=== PATIENT | female | born 1985 | race Caucasian/White ===

== ENCOUNTER 2017-04-12 10:58 | Emergency (ER) | payer OTHER ==
[2017-04-12 11:06] VITALS: BP 116/58; PULSE 77; TEMP 98.2; BMI 23.3
--- NOTE | 2017-04-12 12:10 | PDOC ---
History of Present Illness - General Chief Complaint: Cold Symptoms Stated Complaint: COLD SYMPTOMS Time Seen by Provider: 04/12/17 11:14 History Source: Patient, Spouse - History of Present Illness Timing/Duration: reports: other Associated Symptoms: reports: cough, fever/chills, sore throat. denies: chest pain/soreness, earache, facial pain, headache, muscle aches, nasal drainage, shortness of breath, wheezing Past History - Past Medical History Allergies/Adverse Reactions: Allergies Allergy/AdvReac Type Severity Reaction Status Date / Time No Known Allergies Allergy Verified 04/12/17 11:01 Home Medications: Ambulatory Orders NK [No Known Home Medication] 04/12/17 COPD: No - Surgical History Appendectomy: Yes - Suicide/Smoking/Psychosocial Hx Smoking History: Never smoked Have you smoked in the past 12 months: No Information on smoking cessation initiated: No Hx Alcohol Use: No Drug/Substance Use Hx: No Substance Use Type: None Review of Systems - Review of Systems Constitutional: Yes: Malaise. No: Chills, Fever HEENTM: Yes: Throat Pain. No: Ear Pain Respiratory: Yes: Cough. No: Shortness of Breath, Wheezing Cardiac (ROS): No: Chest Pain ABD/GI: No: Diarrhea, Nausea, Vomiting, Abdominal cramping *Physical Exam - Vital Signs Last Vital Signs Temp Pulse Resp BP Pulse Ox 98.2 F 77 18 116/58 100 04/12/17 11:01 04/12/17 11:01 04/12/17 11:01 04/12/17 11:01 04/12/17 11:01 - Physical Exam General Appearance: Yes: Appropriately Dressed. No: Apparent Distress HEENT: positive: Normal Voice, Other (minimal L conjunc erythema, no discharge) Neck: positive: Supple. negative: Lymphadenopathy (R), Lymphadenopathy (L) Respiratory/Chest: positive: Lungs Clear, Normal Breath Sounds. negative: Respiratory Distress Cardiovascular: positive: Regular Rate, S1, S2 Gastrointestinal/Abdominal: negative: Tender Integumentary: positive: Dry, Warm Neurologic: positive: Fully Oriented, Alert, Normal Mood/Affect Medical Decision Making - Medical Decision Making 04/12/17 12:08 11-year-old female, currently 3 months with no issues with so far, here with malaise with sore throat, cough, hoarseness and left conjunctival erythema 5 days. States she had body aches and fever several days ago but those symptoms have since resolved. Denies chest pain, shortness of breath, n/v. No abd paib or vag bleed. [facility]en in [facility] 4 days ago and diagnosed with viral etiology. Did not have any flu testing done per . Patient here today because she feels like symptoms have worsened See exam Viral syndrome Stable and in NAD with exam only remarkable for minimal left conjunctival erythema No utility in flu testing given duration of symptoms, no benefit from tamiflu at this point No issues with so far -Discharge with supportive treatment and instructed to follow up with OB this week. *DC/Admit/Observation/Transfer Diagnosis at time of Disposition: Viral syndrome - Discharge Dispostion Disposition: HOME Condition at time of disposition: Good - Referrals - Patient Instructions Printed Discharge Instructions: DI for Viral Syndrome Additional Instructions: You have a viral illness. Rest, drink plenty of fluids and take Tylenol as needed for pain and/or fever. Please follow-up with your OB this week. - Post Discharge Activity Forms/Work/School Notes: Back to Work
== END 2017-04-12 12:16 | disposition home or self-care (01) ==
LOC: JERFT 10:58
DX: B34.9 Viral infection, unspecified (principal); H11.89 Other specified disorders of conjunctiva
CPT/HCPCS: 99281-25

== ENCOUNTER 2017-04-15 20:55 | Emergency (ER) | payer OTHER ==
--- NOTE | 2017-04-15 21:09 | PDOC ---
Rapid Medical Evaluation Time Seen by Provider: 04/15/17 21:06 Medical Evaluation: Allergies Allergy/AdvReac Type Severity Reaction Status Date / Time No Known Allergies Allergy Verified 04/12/17 11:01 04/15/17 21:08 Pt c/o: 3 months , vag bleed with no abd pain Pt on brief exam: vss Pt ordered for : labs, urine, and u/s Pt to proceed to the ED 04/15/17 21:13 Discharge Disposition - Diagnosis Vaginal bleeding - Referrals - Patient Instructions - Post Discharge Activity
[2017-04-15 21:12] VITALS: BP 132/62; PULSE 78; TEMP 98.9; BMI 21.9
[2017-04-15 21:31] LABS: BASO % 0.1 % (0-2.0); HEMATOCRIT 36.8 % (32.4-45.2); HEMOGLOBIN 12.5 GM/dL (10.7-15.3); LYMPH % 19.6 % (8-40); MCH 31.2 pg (25.7-33.7); MCHC 34.1 g/dl (32.0-36.0); MEAN CELL VOLUME 91.6 fl (80-96); MEAN PLT VOLUME 7.4 fl (7.5-11.1); MONO % 6.5 % (3.8-10.2); NEUT % 72.8 % (42.8-82.8); PLATELET COUNT 312 K/MM3 (134-434); RBC 4.02 M/mm3 (3.60-5.2); RDW 12.6 % (11.6-15.6); WHITE BLOOD COUNT 10.4 K/mm3 (4.0-10.0)
--- NOTE | 2017-04-15 21:31 | PDOC ---
History of Present Illness - General Chief Complaint: Vaginal Bleeding Stated Complaint: 16 WEEKS BLEEDING Time Seen by Provider: 04/15/17 21:06 Past History - Past Medical History Allergies/Adverse Reactions: Allergies Allergy/AdvReac Type Severity Reaction Status Date / Time No Known Allergies Allergy Verified 04/15/17 21:09 Home Medications: Ambulatory Orders NK [No Known Home Medication] 04/12/17 COPD: No Other medical history: Pt denies - Surgical History Appendectomy: Yes - Suicide/Smoking/Psychosocial Hx Smoking History: Never smoked Have you smoked in the past 12 months: No Information on smoking cessation initiated: No Hx Alcohol Use: No Drug/Substance Use Hx: No Substance Use Type: None *Physical Exam - Vital Signs Last Vital Signs Temp Pulse Resp BP Pulse Ox 98.9 F 78 18 132/62 100 04/15/17 21:09 04/15/17 21:09 04/15/17 21:09 04/15/17 21:09 04/15/17 21:09 ED Treatment Course - LABORATORY CBC & Chemistry Diagram: 04/15/17 21:21 04/15/17 21:21 *DC/Admit/Observation/Transfer Diagnosis at time of Disposition: Vaginal bleeding - Referrals - Patient Instructions - Post Discharge Activity
--- NOTE | 2017-04-15 21:33 | PDOC ---
History of Present Illness - General Chief Complaint: Vaginal Bleeding Stated Complaint: 16 WEEKS BLEEDING Time Seen by Provider: 04/15/17 21:06 - History of Present Illness Initial Comments: 04/15/17 21:39 Ms. Lott is a 31 yo female at 11 or 12 weeks who presents for evaluation of bleeding for 1 day. She reports she was evaluated yesterday with an abdominal US that was scheduled by her FISH FILLETER and told everything looked normal but that she started bleeding consistent with a heavy day of her period today. She decided to come in to get checked out because of this. The patient denies chest pain, shortness of breath, headache and dizziness. Denies fever, chills, nausea, vomit, diarrhea and constipation. Denies dysuria, frequency, urgency and hematuria. Allergies: NKDA Past History - Past Medical History Allergies/Adverse Reactions: Allergies Allergy/AdvReac Type Severity Reaction Status Date / Time No Known Allergies Allergy Verified 04/15/17 21:09 Home Medications: Ambulatory Orders NK [No Known Home Medication] 04/12/17 COPD: No Other medical history: Pt denies - Surgical History Appendectomy: Yes - Suicide/Smoking/Psychosocial Hx Smoking History: Never smoked Have you smoked in the past 12 months: No Information on smoking cessation initiated: No Hx Alcohol Use: No Drug/Substance Use Hx: No Substance Use Type: None Review of Systems - Review of Systems Comments:: 04/15/17 21:46 GENERAL/CONSTITUTIONAL: No fever or chills. No weakness. HEAD, EYES, EARS, NOSE AND THROAT: No change in vision. No ear pain or discharge. No sore throat. CARDIOVASCULAR: No chest pain or shortness of breath RESPIRATORY: No cough, wheezing, or hemoptysis. GASTROINTESTINAL: No nausea, vomiting, diarrhea or constipation. GENITOURINARY: No dysuria, frequency, or change in urination. MUSCULOSKELETAL: No joint or muscle swelling or pain. No neck or back pain. SKIN: No rash NEUROLOGIC: No headache, vertigo, loss of consciousness, or change in strength/ sensation. ENDOCRINE: No increased thirst. No abnormal weight change HEMATOLOGIC/LYMPHATIC: No anemia, easy bleeding, or history of blood clots. ALLERGIC/IMMUNOLOGIC: No hives or skin allergy. : +Bleeding as described. *Physical Exam - Vital Signs Last Vital Signs Temp Pulse Resp BP Pulse Ox 98.9 F 78 18 132/62 100 04/15/17 21:09 04/15/17 21:09 04/15/17 21:09 04/15/17 21:09 04/15/17 21:09 - Physical Exam Comments: 04/15/17 21:46 GENERAL: Awake, alert, and fully oriented, in no acute distress HEAD: No signs of trauma, normocephalic, atraumatic EYES: PERRLA, EOMI, sclera anicteric, conjunctiva clear ENT: Auricles normal inspection, hearing grossly normal, nares patent, oropharynx clear without exudates. Moist mucosa NECK: Normal ROM, supple, no lymphadenopathy, JVD, or masses LUNGS: No distress, speaks full sentences, clear to auscultation bilaterally HEART: Regular rate and rhythm, normal S1 and S2, no murmurs, rubs or gallops, peripheral pulses normal and equal bilaterally. ABDOMEN: Soft, nontender, normoactive bowel sounds. No guarding, no rebound. No masses EXTREMITIES: Normal inspection, Normal range of motion, no edema. No clubbing or cyanosis. NEUROLOGICAL: Cranial nerves II through XII grossly intact. Normal speech, normal gait, no focal sensorimotor deficits SKIN: Warm, Dry, normal turgor, no rashes or lesions noted. : +Scant blood noted in vaginal vault. No CMT tenderness. Os closed. ED Treatment Course - LABORATORY CBC & Chemistry Diagram: 04/15/17 21:21 04/15/17 21:21 - ADDITIONAL ORDERS Additional order review: 04/15/17 21:21 RBC 4.02 MCV 91.6 MCHC 34.1 RDW 12.6 MPV 7.4 L Neutrophils % 72.8 Lymphocytes % 19.6 Monocytes % 6.5 Eosinophils % 1.0 Basophils % 0.1 Medical Decision Making - Medical Decision Making 04/15/17 23:11 Ms. Lott is a 31 yo female w/ pmh as described who presents for evaluation of 1 day of vaginal bleeding while . CBC/CMP/UA/US sent for evaluation. Patient labs noted to be grossly wnl as below. US significant for confirmed 13w and 3d IUP w/ no concerning findings. Os closed. Will have patient follow-up with FISH FILLETER for further evaluation as no acute process at this time. Retyping blood for rhogam administration. 04/15/17 23:55 Rhogam given for prophylaxis. Patient verbalized she will follow-up with FISH FILLETER for further evaluation. Discharging to home. *DC/Admit/Observation/Transfer Diagnosis at time of Disposition: Vaginal bleeding - Referrals - Patient Instructions Printed Discharge Instructions: DI for Vaginal Bleeding During Additional Instructions: Please return if any pain, fever, or other concerning symptoms. Follow-up with your FISH FILLETER as discussed for further evaluation. - Post Discharge Activity
[2017-04-15 21:36] LABS: URINE APPEARANCE CLEAR; URINE BILIRUBIN NEGATIVE (NEGATIVE); URINE BLOOD 1+ (NEGATIVE); URINE COLOR STRAW; URINE GLUCOSE (UA) NEGATIVE (NEGATIVE); URINE KETONE NEGATIVE (NEGATIVE); URINE LEUK ESTERASE NEGATIVE (NEGATIVE); URINE NITRITE NEGATIVE (NEGATIVE); URINE PROTEIN NEGATIVE (NEGATIVE); URINE UROBILINOGEN NEGATIVE mg/dL (0.2-1.0)
[2017-04-15 21:42] LABS: EPI CELLS RARE /HPF (FEW); URINE MUCUS RARE
[2017-04-15 22:04] LABS: ALBUMIN 3.2 g/dl (3.4-5.0); ANION GAP 9 (8-16); BLOOD UREA NITROGEN 19 mg/dL (7-18); CALCIUM 8.5 mg/dL (8.5-10.1); CHLORIDE 99 mmol/L (98-107); CO2 25 mmol/L (21-32); CREATININE 0.6 mg/dL (0.55-1.02); GLUCOSE,RANDOM 84 mg/dL (74-106); POTASSIUM 3.9 mmol/L (3.5-5.1); SGOT/AST 16 U/L (15-37); SGPT/ALT 35 U/L (12-78); SODIUM 133 mmol/L (136-145)
[2017-04-15 22:20] LABS: ALK PHOS 143 U/L (45-117); BILIRUBIN,TOTAL 0.3 mg/dL (0.2-1.0); TOT PROT 7.2 g/dl (6.4-8.2)
[2017-04-15] MEDS ORDERED: RHO(D) IMMUNE GLOBULIN 1,500 UNIT DISP.SYRIN IM ONE (23:23)
--- NOTE | 2017-04-15 23:23 | PDOC ---
Attending Attestation - Resident Resident Name: Timo Trujillo - ED Attending Attestation I have performed the following: I have examined & evaluated the patient, The case was reviewed & discussed with the resident, I agree w/resident's findings & plan - HPI HPI: 04/15/17 23:20 Pt comes with vag bleed in the 1st treimester of . This is her first . She has no abd pain and no dysuria. Pt states that she is RH negative. - Physicial Exam PE: 04/15/17 23:21 AGree with resident exam. Pt has a closed cervical os, and minimal dark blood in the vault - Medical Decision Making 04/15/17 23:21 Pt will get RHOGAM, as she is RH negative in the ER. SOno shows a 12 week IUP good FH. Pt's exam is normal. 04/15/17 23:23 Ua is positive only for blood; no nitrites and no ketones.
== END 2017-04-16 02:13 | disposition home or self-care (01) ==
LOC: JER 20:55
PROC: 3E0234Z Introduction of Serum, Toxoid and Vaccine into Muscle, Percutaneous Approach (ICD-10-PCS; principal; 2017-04-15)
DX: O26.891 Other specified pregnancy related conditions, first trimester (principal); O20.8 Other hemorrhage in early pregnancy; Z3A.12 12 weeks gestation of pregnancy
CPT/HCPCS: 36415; 76801-TC; 80053; 81003; 81015; 84702; 85025; 86850; 86900; 86901; 86999; 87086; 99281-25; J1561

== ENCOUNTER 2017-10-10 07:20 | Inpatient (IN) | payer OTHER ==
[2017-10-10 07:59] VITALS: BMI 27.2
[2017-10-10] MEDS ORDERED: OXYTOCIN 20 UNITS in 0.9% NS 20 UNIT/1,000 ML INFUS.BAG IV ONE ×2 (08:08→13:36)
[2017-10-10 08:36] LABS: BASO % 0.1 % (0-2.0); HEMATOCRIT 37.3 % (32.4-45.2); HEMOGLOBIN 12.3 GM/dL (10.7-15.3); LYMPH % 7.5 % (8-40); MCH 30.5 pg (25.7-33.7); MCHC 32.9 g/dl (32.0-36.0); MEAN CELL VOLUME 92.7 fl (80-96); MEAN PLT VOLUME 8.3 fl (7.5-11.1); MONO % 2.7 % (3.8-10.2); NEUT % 89.7 % (42.8-82.8); PLATELET COUNT 215 K/MM3 (134-434); RBC 4.02 M/mm3 (3.60-5.2); RDW 13.1 % (11.6-15.6); WHITE BLOOD COUNT 13.9 K/mm3 (4.0-10.0)
[2017-10-10] MEDS ORDERED: PROMETHAZINE HCL 25 MG/1 ML VIAL ONE (08:49)
[2017-10-10] MEDS ORDERED: BUTORPHANOL TARTRATE 1 MG/ML VIAL ONE ×2 (08:49)
[2017-10-10 08:58] LABS: ANION GAP 13 MMOL/L (8-16); BLOOD UREA NITROGEN 10 mg/dL (7-18); CALCIUM 8.3 mg/dL (8.5-10.1); CHLORIDE 104 mmol/L (98-107); CO2 20 mmol/L (21-32); CREATININE 0.7 mg/dL (0.55-1.02); GLUCOSE,RANDOM 178 mg/dL (74-106); POTASSIUM 3.8 mmol/L (3.5-5.1); SODIUM 137 mmol/L (136-145)
--- NOTE | 2017-10-10 09:12 | HP ---
Past Medical History - Primary Care Physician PCP:: Keisha Womack - Admission Chief Complaint: 32 yrs , 38 weeks by dates & sono c/o onset LP since 3.00AM . pt in labor History of Present Illness: PNC at [address] [place] [address] 31 lbs wt gain work Up :03/30/17 A Neg, Rpr nr, Hiv neg, Rubella immune, Hbsag neg , Sickle neg, CF screen neg, Lead neg , Pap NILM, Gc /Ct neg h/o 1st trimester bleeding , Rhogam received in ER & again in the clinic on 08/05 . 1 hr gtt 83, Quantiferon neg, Rpr nr 09/23/17 h/h 12.8/37.5, plt 230, Gc/ct neg , hiv neg, GBS Pos h/o serial growth sono done by M. NT screen done. during anatomy sono EIF seen, [id number] neg History Source: Patient, Medical Record - Past Medical History RISK CONTROL FIELD REPRESENTATIVE: No: Migraine, Seizure Cardiovascular: No: HTN Pulmonary: No: Asthma Renal/: No: UTI Reproductive: Yes: Other (pap 03/30/17 NILM) ...: 1 ...LMP: 01/17/17 ... Weeks Gestation by Dates: 38.0 ...EDC by Dates: 10/24/17 ...EDC by Sono: 10/24/17 (03/04/17 sono 6.4 weeks ) Heme/Onc: No: Anemia Infectious Disease: No: AIDS, HIV, STD's, Tuberculosis Psych: Yes: Other (declines h/o mental disorder) Endocrine: No: Diabetes Mellitus - Past Surgical History Past Surgical History: Yes: Appendectomy Hx Myomectomy: No Hx Transabdominal Cerclage: No Additional Surgical History: h/o bilateral Breast Implants - Smoking History Smoking history: Never smoked Have you smoked in the past 12 months: No - Alcohol/Substance Use Hx Alcohol Use: No History of Substance Use: reports: None Home Medications - Allergies Allergies/Adverse Reactions: Allergies Allergy/AdvReac Type Severity Reaction Status Date / Time No Known Allergies Allergy Verified 10/10/17 08:04 - Home Medications Home Medications: Ambulatory Orders Tablet 1 tablet PO DAILY 10/10/17 Physical Exam - Maternity Vital Signs: Vital Signs Temperature 98.1 F 10/10/17 07:53 Pulse Rate 85 10/10/17 07:53 Respiratory Rate 18 10/10/17 07:53 Blood Pressure 132/83 10/10/17 07:53 O2 Sat by Pulse Oximetry (%) Constitutional: Yes: Well Nourished, Moderate Distress Eyes: Yes: WNL HENT: Yes: WNL, Normocephalic Neck: Yes: WNL Cardiovascular: Yes: WNL, Regular Rate and Rhythm Lungs: Clear to auscultation Breast(s): Yes: Breast Implants (bilateral) - Abdominal Exam/OB Fundal Height: 38 Number of Fetuses: Single Presentation: Vertex Contractions: Yes Regularity: Regular (4-5 min) Intensity: Mod/Strong Monitor Mode: External Heart Rate (range): 155 Heart Rate Location: [facility] Category: I Accelerations: Uniform Decelerations: None - Vaginal Exam/OB Vaginal Bleediing: No Dilatation (cm): 6 Effacement (%): 100 Amniotic Membrane Status: Ruptured (AROM at 8.45 AM clear, small amount) Amniotic Fluid: Yes: Clear Presentation: Vertex/Position Station: -1 - Physical Exam Musculoskeletal: Yes: WNL Extremities: Yes: WNL. No: Calf Tenderness Edema: Yes Edema: LLE: Trace, RLE: Trace Integumentary: Yes: WNL Deep Tendon Reflex Grade: Normal +2 ...Motor Strength: WNL Psychiatric: Yes: WNL, Alert, Oriented - Labs Lab Results: CBC, BMP 10/10/17 08:00 10/10/17 08:00 Laboratory Tests 10/10/17 08:00 Blood Type A NEGATIVE Antibody Screen Positive H Problem List - Problems (1) with 38 completed weeks gestation Code(s): Z3A.38 - 38 WEEKS GESTATION OF (2) Labor established Code(s): XEG3182 - (3) Positive GBS test Code(s): B95.1 - STREPTOCOCCUS, GROUP B, CAUSING DISEASES CLASSD ELSWHR Assessment/Plan 32 yrs , 38 weeks , admitted in active labor Gbs pos Plan Rx Iv Ampicillin prophylaxis stadol + phenrgan for labor analgesia anticipate vaginal delivery .
[2017-10-10] MEDS ORDERED: BUTORPHANOL TARTRATE 1 MG/ML VIAL IVPB ONE (09:15)
[2017-10-10] MEDS ORDERED: PROMETHAZINE HCL 25 MG/1 ML VIAL IVPUSH ONE (09:15)
[2017-10-10] MEDS ORDERED: AMPICILLIN - 2 GM in SODIUM CHLORIDE 100 ML IVPB ONE (09:15)
[2017-10-10] MEDS ORDERED: DEXTROSE 5%-LACTATED RINGERS 1,000 ML IV SCH (09:15)
[2017-10-10 09:28] LABS: INR 0.91 (0.83-1.09); PROTHROMBIN TIME (PATIENT) 10.3 SEC (9.7-13.0)
[2017-10-10 09:30] LABS: ACTIVATED PTT 28.5 SECONDS (25.2-36.5)
[2017-10-10] MEDS: AMPICILLIN - 1 GM in SODIUM CHLORIDE 100 ML IVPB SCH ×2 (11:15→14:37)
[2017-10-10] MEDS ORDERED: AMPICILLIN SODIUM 1 GM VIAL ONE (11:15)
[2017-10-10] MEDS ORDERED: METHYLERGONOVINE MALEATE 0.2 MG/1 ML AMP IM PRN (13:09)
[2017-10-10] MEDS ORDERED: BENZOCAINE 28 GM HEMORRHOIDAL OINTMENT TP PRN (13:09)
[2017-10-10] MEDS ORDERED: IBUPROFEN 600 MG TABLET (FP) PO PRN (13:09)
[2017-10-10] MEDS ORDERED: BISACODYL 10 MG SUPP.RECT RC PRN (13:09)
[2017-10-10] MEDS ORDERED: oxyCODONE HCL 5 MG TABLET PO PRN (13:09)
[2017-10-10] MEDS ORDERED: WITCH HAZEL 50% (TUCKS) 40 PAD/JAR PAD TP PRN (13:09)
[2017-10-10] MEDS ORDERED: ACETAMINOPHEN 325 MG TABLET (FP) PO PRN (13:09)
[2017-10-10] MEDS ORDERED: BENZOCAINE 20% 57 GM BOTTLE TP PRN (13:09)
--- NOTE | 2017-10-10 13:19 | PN ---
Delivery - Delivery Vaginal Delivery: No Problems, Spontaneous (baby delieverd vx presentation, Niels position, coed around neck, untangled , oral & nasa suction was done .cord blood clooected Placenta removed completely with membranes) Type of Anesthesia: Local Episiotomy/Laceration: Midline (midline episiotomy was sutured in layers with chr catgut #2/0 under local anesthesia . bladder catheterized & emptied 300 ml urine removed . Pr exam mucosa & sphincter intact) EBL (cc): 300 Delivery, Single - Stages of Labor Date 1st Stage Initiatied: 10/10/17 Time 1st Stage Initiated: 03:00 Date 2nd Stage Initiated: 10/10/17 Time 2nd Stage Initiated: 11:15 Date of Delivery: 10/10/17 Time of Delivery: 11:47 Time Placenta Delivered: 11:50 Placenta: Yes: Spontaneous, Uterine Exploration - Condition of Infant Forming Yardage Control Operator/Plastics Patternmaker Present: No Infant Gender: Male Weight: 6 lb 14 oz Position: Left, OA Total Hours ROM (Hrs/Mins): 3H10M - 1 Minute Total Score: 9 5 Minutes Total Score: 9 - [place] Feeding Plan Initial Plan: Exclusive throughout hospitalization Remarks - Remarks Remarks: 32 yrs , 38 weeks gestation , admitted in labor pnc at [address] [place] [address] Gbs positive . 2 doses of Iv Ampicillin were given Intra Iv stadol 2 mg + phenrgan 25 mg iv was given for labor analgesia . intrapartum course uneventful
[2017-10-10] MEDS ORDERED: OXYTOCIN 20 UNITS in 0.9% NS 20 UNIT/1,000 ML INFUS.BAG IV SCH (13:30)
[2017-10-10] MEDS ORDERED: IBUPROFEN 600 MG TABLET (FP) PO ONE (13:38)
[2017-10-10] MEDS: FERROUS SO4 325 MG TABLET (FP) PO SCH (17:43)
[2017-10-11 08:32] LABS: BASO % 0.1 % (0-2.0); EOS % 0.3 % (0-4.5); HEMATOCRIT 30.2 % (32.4-45.2); HEMOGLOBIN 9.9 GM/dL (10.7-15.3); LYMPH % 11.6 % (8-40); MCH 30.8 pg (25.7-33.7); MCHC 32.8 g/dl (32.0-36.0); MEAN CELL VOLUME 93.9 fl (80-96); MEAN PLT VOLUME 8.2 fl (7.5-11.1); PLATELET COUNT 188 K/MM3 (134-434); RBC 3.22 M/mm3 (3.60-5.2); RDW 13.6 % (11.6-15.6); WHITE BLOOD COUNT 16.6 K/mm3 (4.0-10.0)
[2017-10-11] MEDS: FERROUS SO4 325 MG TABLET (FP) PO SCH ×2 (08:57→17:22)
--- NOTE | 2017-10-11 09:50 | PN ---
Post Progress Note - Subjective Subjective: no complains except perineal soreness Type of Delivery: Vital Signs: Vital Signs Temperature 98.2 F 10/11/17 07:51 Pulse Rate 81 10/11/17 07:51 Respiratory Rate 18 10/11/17 07:51 Blood Pressure 99/58 10/11/17 07:51 O2 Sat by Pulse Oximetry (%) Breast Exam: Yes: Soft, Other (BF ). No: Engorged Uterus: Yes: Fundus Firm, Fundus below umbilicus, Non-tender Lochia: Yes: Rubra Lochia, amount: Moderate Extremities: Yes: Calves non-tender Perineum: Yes: Episiotomy (healing ok ) Activity: Ambulating - Labs Labs: CBC WBC 16.6 K/mm3 (4.0-10.0) H 10/11/17 08:04 RBC 3.22 M/mm3 (3.60-5.2) L 10/11/17 08:04 Hgb 9.9 GM/dL (10.7-15.3) L 10/11/17 08:04 Hct 30.2 % (32.4-45.2) L D 10/11/17 08:04 MCV 93.9 fl (80-96) 10/11/17 08:04 MCH 30.8 pg (25.7-33.7) 10/11/17 08:04 MCHC 32.8 g/dl (32.0-36.0) 10/11/17 08:04 RDW 13.6 % (11.6-15.6) 10/11/17 08:04 Plt Count 188 K/MM3 (134-434) 10/11/17 08:04 MPV 8.2 fl (7.5-11.1) 10/11/17 08:04 Absolute Neuts (auto) 13.6 K/mm3 (1.5-8.0) H 10/11/17 08:04 Neutrophils % 82.0 % (42.8-82.8) 10/11/17 08:04 Lymphocytes % 11.6 % (8-40) D 10/11/17 08:04 Monocytes % 6.0 % (3.8-10.2) D 10/11/17 08:04 Eosinophils % 0.3 % (0-4.5) D 10/11/17 08:04 Basophils % 0.1 % (0-2.0) 10/11/17 08:04 Nucleated RBC % 0 % (0-0) 10/11/17 08:04 Problem List - Problems (1) with 38 completed weeks gestation Code(s): Z3A.38 - 38 WEEKS GESTATION OF (2) Labor established Code(s): DEN7579 - (3) Positive GBS test Code(s): B95.1 - STREPTOCOCCUS, GROUP B, CAUSING DISEASES CLASSD ELSWHR (4) Vaginal delivery Code(s): O80 - ENCOUNTER FOR FULL-TERM UNCOMPLICATED DELIVERY (5) Encounter for visit Code(s): Z39.2 - ENCOUNTER FOR ROUTINE FOLLOW-UP Assessment/Plan doing well anemia & pericare counselled discharge tomorrow.
[2017-10-11] MEDS: PRENATAL VITAMINS W/ FOLIC ACID TABLET (FP) PO SCH (09:57)
[2017-10-11] MEDS ORDERED: DIPHTH,PERTUSS(ACELL),TET 0.5 ML DISP.SYRIN IM ONE (10:00)
[2017-10-11] MEDS ORDERED: SENNOSIDES/DOCUSATE COMBO (SENNA PLUS) TABLET (UD) PO PRN (22:00)
[2017-10-12] MEDS: FERROUS SO4 325 MG TABLET (FP) PO SCH (07:45)
[2017-10-12] MEDS: PRENATAL VITAMINS W/ FOLIC ACID TABLET (FP) PO SCH (10:07)
[2017-10-12 10:14] VITALS: BP 111/61; PULSE 85; TEMP 98.9
--- NOTE | 2017-10-12 10:32 | DS ---
Physical Exam-OIL BURNER TECHNICIAN Vital Signs: Vital Signs Temperature 98.9 F 10/12/17 10:00 Pulse Rate 85 10/12/17 10:00 Respiratory Rate 18 10/12/17 10:00 Blood Pressure 111/61 10/12/17 10:00 O2 Sat by Pulse Oximetry (%) Constitutional: Yes: Well Nourished Eyes: Yes: Conjunctiva Clear HENT: Yes: Atraumatic Neck: Yes: Supple Cardiovascular: Yes: Regular Rate and Rhythm Respiratory: Yes: Regular Gastrointestinal: Yes: Normal Bowel Sounds ...Rectal Exam: Yes: WNL Pelvis: Yes: WNL External Genitalia: Yes: Normal Vaginal Exam: Yes: Normal Cervix: Yes: Normal Uterus: Yes: Firm ....Post : Yes: Uterus firm Neurological: Yes: Alert, Oriented ...Motor Strength: WNL Psychiatric: Yes: Alert, Oriented Labs: CBC, BMP 10/11/17 08:04 10/10/17 08:00 Delivery - Delivery Vaginal Delivery: No Problems, Spontaneous (baby delieverd vx presentation, Niels position, coed around neck, untangled , oral & nasa suction was done .cord blood clooected Placenta removed completely with membranes) Type of Anesthesia: Local Episiotomy/Laceration: Midline (midline episiotomy was sutured in layers with chr catgut #2/0 under local anesthesia . bladder catheterized & emptied 300 ml urine removed . Pr exam mucosa & sphincter intact) EBL (cc): 300 Delivery, Single - Stages of Labor Date 1st Stage Initiatied: 10/10/17 Time 1st Stage Initiated: 03:00 Date 2nd Stage Initiated: 10/10/17 Time 2nd Stage Initiated: 11:15 Date of Delivery: 10/10/17 Time of Delivery: 11:47 Time Placenta Delivered: 11:50 Placenta: Yes: Spontaneous, Uterine Exploration - Condition of Butting Saw Operator/Poultry Boner Present: No Infant Gender: Male Weight: 6 lb 14 oz Position: Left, OA Total Hours ROM (Hrs/Mins): 3H10M - 1 Minute Total Score: 9 5 Minutes Total Score: 9 - [place] Feeding Plan Initial Plan: Exclusive throughout hospitalization Discharge Summary Reason For Visit: ADMIT LABOR Current Active Problems Encounter for visit (Acute) Labor established (Acute) Positive GBS test (Acute) with 38 completed weeks gestation (Acute) Vaginal delivery (Acute) Procedures: Principal: Normal spontaneous vaginal delivery Hospital Course: Routine care Condition: Stable - Instructions Diet, Activity, Other Instructions: Post Instructions DIET: Continue good diet high in protein, calcium, and iron rich foods. Drink at least eight (8) glasses of water daily in addition to other fluids. ct Regular diet MEDICATIONS: Continue vitamins and iron as previously directed. Motrin and Tylenol may be taken for minor discomfort. ACTIVITY: Mild to moderate exercise may be started in two (2) weeks. Take frequent rest periods. Resume normal activity after six (6) week check up. WOUND CARE OF OPERATIVE SITE: Continue use of perineal bottle until vaginal discharge stops. Keep area clean. Shower daily. Keep abdominal wound dry. Report any drainage or redness to physician. Tub baths, tampons and douches are not permitted for [address] Breast feeding & or Bottle feeding BREAST CARE: (For those that are not breast feeding): If engorgement occurs: Wear tight fitting bra. Take Tylenol or Motrin for pain. Apply cold packs (ice in bags to each breast ) FAMILY PLANNING: There are many control alternatives to pursue and they should be discussed at your first office visit. You may resume sexual activity after your six (6) week check up. (Remember, breast feeding is not a contraceptive) NEXT PHYSICIAN APPOINTMENT: Be certain to call for a six (6) week appointment, unless otherwise directed. Call Clinic or got to Emergency Dept if you have any of the following: Heavy vaginal bleeding Painful urination Leg pain Unusual odor noted to vaginal bleeding High fever Red streaking noted on breast Referrals: Keisha Womack MD [Staff Physician] - Disposition: HOME - Home Medications Comprehensive Discharge Medication List: Ambulatory Orders Tablet 1 tablet PO DAILY 10/10/17 Acetaminophen [Tylenol .Regular Strength -] 650 mg PO Q3H PRN tablet 10/11/17 Benzocaine [Americaine 20% [place] -] 1 spray TP DAILY PRN bottle 10/11/17 Docusate Sodium [Colace] 100 mg PO TID PRN #60 capsule 10/11/17 Ferrous Sulfate [Feosol] 325 mg PO BIDWM #60 tab 10/11/17 Ibuprofen [Motrin -] 600 mg PO Q4H PRN #20 tablet 10/11/17 Vitamins (Sjr) - 1 tab PO DAILY #30 tablet 10/11/17 Witch Valarie 50% (Terrys) [Tucks Pads -] 1 pad TP DAILY PRN pad 10/11/17
--- NOTE | 2017-10-12 19:33 | DS ---
Physical Exam-[employer] Vital Signs: Vital Signs Temperature 98.9 F 10/12/17 10:00 Pulse Rate 85 10/12/17 10:00 Respiratory Rate 18 10/12/17 10:00 Blood Pressure 111/61 10/12/17 10:00 O2 Sat by Pulse Oximetry (%) Constitutional: Yes: Well Nourished Eyes: Yes: WNL HENT: Yes: WNL, Normocephalic Neck: Yes: WNL Cardiovascular: Yes: WNL, Regular Rate and Rhythm Respiratory: Yes: WNL, CTA Bilaterally Gastrointestinal: Yes: WNL, Normal Bowel Sounds ...Rectal Exam: Yes: WNL, Sphincter Tone Normal, Other (bm done) External Genitalia: Yes: Normal Vaginal Exam: Yes: Normal Cervix: Yes: Normal ....Post : Yes: Uterus firm, Moderate lochia rubra (episiotmy healing , soreness less) Breast(s): Yes: WNL, Other (BF) Musculoskeletal: Yes: WNL Extremities: Yes: WNL. No: Calf Tenderness Edema: Yes Edema: LLE: Trace, RLE: Trace Integumentary: Yes: Tattoos Neurological: Yes: WNL, Alert, Oriented ...Motor Strength: WNL Psychiatric: Yes: WNL, Alert, Oriented Labs: CBC, BMP 10/11/17 08:04 10/10/17 08:00 Delivery - Delivery Vaginal Delivery: No Problems, Spontaneous (baby delieverd vx presentation, Niels position, coed around neck, untangled , oral & nasa suction was done .cord blood clooected Placenta removed completely with membranes) Type of Anesthesia: Local Episiotomy/Laceration: Midline (midline episiotomy was sutured in layers with chr catgut #2/0 under local anesthesia . bladder catheterized & emptied 300 ml urine removed . Pr exam mucosa & sphincter intact) EBL (cc): 300 Delivery, Single - Stages of Labor Date 1st Stage Initiatied: 10/10/17 Time 1st Stage Initiated: 03:00 Date 2nd Stage Initiated: 10/10/17 Time 2nd Stage Initiated: 11:15 Date of Delivery: 10/10/17 Time of Delivery: 11:47 Time Placenta Delivered: 11:50 Placenta: Yes: Spontaneous, Uterine Exploration - Condition of Security Clerk/Bilingual Administrative Assistant Present: No Gender: Male Weight: 6 lb 14 oz Position: Left, OA Total Hours ROM (Hrs/Mins): 3H10M - 1 Minute Total Score: 9 5 Minutes Total Score: 9 - [place] Feeding Plan Initial Plan: Exclusive throughout hospitalization Remarks - Remarks Remarks: 32 yrs , 38 weeks gestation , admitted in labor pnc at [address] [place] [address] Gbs positive . 2 doses of Iv Ampicillin were given Intra Iv stadol 2 mg + phenrgan 25 mg iv was given for labor analgesia . intrapartum course uneventful pp anemia counselled pericare counselled discharge today Discharge Summary Reason For Visit: ADMIT LABOR Condition: Stable - Instructions Diet, Activity, Other Instructions: Post Instructions DIET: Continue good diet high in protein, calcium, and iron rich foods. Drink at least eight (8) glasses of water daily in addition to other fluids. ct Regular diet MEDICATIONS: Continue vitamins and iron as previously directed. Motrin and Tylenol may be taken for minor discomfort. ACTIVITY: Mild to moderate exercise may be started in two (2) weeks. Take frequent rest periods. Resume normal activity after six (6) week check up. WOUND CARE OF OPERATIVE SITE: Continue use of perineal bottle until vaginal discharge stops. Keep area clean. Shower daily. Keep abdominal wound dry. Report any drainage or redness to physician. Tub baths, tampons and douches are not permitted for [address] Breast feeding & or Bottle feeding BREAST CARE: (For those that are not breast feeding): If engorgement occurs: Wear tight fitting bra. Take Tylenol or Motrin for pain. Apply cold packs (ice in bags to each breast ) FAMILY PLANNING: There are many control alternatives to pursue and they should be discussed at your first office visit. You may resume sexual activity after your six (6) week check up. (Remember, breast feeding is not a contraceptive) NEXT PHYSICIAN APPOINTMENT: Be certain to call for a six (6) week appointment, unless otherwise directed. Call Clinic or got to Emergency Dept if you have any of the following: Heavy vaginal bleeding Painful urination Leg pain Unusual odor noted to vaginal bleeding High fever Red streaking noted on breast Referrals: Keisha Womack MD [Staff Physician] - Disposition: HOME - Home Medications Comprehensive Discharge Medication List: Ambulatory Orders Tablet 1 tablet PO DAILY 10/10/17 Acetaminophen [Tylenol .Regular Strength -] 650 mg PO Q3H PRN tablet 10/11/17 Benzocaine [Americaine 20% Turner -] 1 spray TP DAILY PRN bottle 10/11/17 Docusate Sodium [Colace] 100 mg PO TID PRN #60 capsule 10/11/17 Ferrous Sulfate [Feosol] 325 mg PO BIDWM #60 tab 10/11/17 Ibuprofen [Motrin -] 600 mg PO Q4H PRN #20 tablet 10/11/17 Vitamins (Sjr) - 1 tab PO DAILY #30 tablet 10/11/17 Witch Valarie 50% (Tucks) [Tucks Pads -] 1 pad TP DAILY PRN pad 10/11/17
== END 2017-10-12 12:40 | disposition home or self-care (01) | DRG 560 ==
LOC: JLDR 07:20 → J3W 14:13
PROVIDERS: ADMIT Obstetrics & Gynecology; ATTEND Obstetrics & Gynecology
PROC: 10E0XZZ Delivery of Products of Conception, External Approach (ICD-10-PCS; principal; 2017-10-10)
PROC: 0W8NXZZ Division of Female Perineum, External Approach (ICD-10-PCS; 2017-10-10)
DX: O99.824 Streptococcus B carrier state complicating childbirth (principal); Z3A.38 38 weeks gestation of pregnancy; Z37.0 Single live birth
CPT/HCPCS: 36415; 59409; 80048; 85025; 85461; 85610; 85730; 86593; 86850; 86870; 86900; 86901; 86902; 86999; 90715